=== PATIENT | male | born 1980 | race African-American/Black ===

== ENCOUNTER 2018-03-09 12:39 | Emergency (ER) | payer SELFPAY ==
[2018-03-09] MEDS ORDERED: Acetaminophen 325 MG TAB ONE (13:10)
[2018-03-09] MEDS ORDERED: Ibuprofen 200 MG TAB ONE (13:10)
--- NOTE | 2018-03-09 14:24 | RAD ---
LEFT WRIST 3 VIEWS; Date: 03/09/18 HISTORY: Trauma. COMPARISON: None. FINDINGS: There is an old fourth metacarpal fracture. No acute displaced fracture or malalignment. Soft tissues unremarkable. IMPRESSION: No acute abnormality. POS: [facility]
--- NOTE | 2018-03-09 14:24 | RAD ---
CHEST 2 VIEWS: Date: 03/09/18 HISTORY: Trauma. COMPARISON: None. FINDINGS: Lungs are clear. No pneumothorax or effusion. Cardiac silhouette and mediastinal contours within norm al limits. No displaced rib fracture. Degenerative changes left distal clavicle and coracoclavicular ligaments. IMPRESSION: No acute abnormality. POS: [facility]
--- NOTE | 2018-03-09 14:26 | RAD ---
CERVICAL SPINE AP AND LATERAL STANDARD: Date: 03/09/18 HISTORY: Fall from standing. COMPARISON: None. FINDINGS: Open-mouth odontoid view is normal. Mild straightening cervical spine. No acute fracture or malalignm ent. IMPRESSION: No acute abnormality of the cervical spine. POS: [facility]
== END 2018-03-09 13:50 | disposition home or self-care (01) ==
LOC: ERS 12:39
DX: S09.90XA Unspecified injury of head, initial encounter (principal); T14.8XXA Other injury of unspecified body region, initial encounter; S00.81XA Abrasion of other part of head, initial encounter; W10.9XXA Fall (on) (from) unspecified stairs and steps, initial encounter
CPT/HCPCS: 71046; 72040